=== PATIENT | male | born 1955 | race Two or more races ===

== ENCOUNTER 2023-08-20 08:02 | Observation (INO) | payer MEDICARE, OTHER ==
[2023-08-20] MEDS ORDERED: Ondansetron PF 4 MG/2 ML Vial ONE (10:30)
[2023-08-20] MEDS ORDERED: Lidocaine 1% PF 5 ML VIAL ONE (10:30)
[2023-08-20] MEDS ORDERED: Rocuronium Bromide 10 MG/ML (10ML VIAL) ONE (10:30)
[2023-08-20] MEDS ORDERED: PROPOFOL 20 ML ONE (10:31)
[2023-08-20] MEDS ORDERED: Dexamethasone 4 mg/ml Vial ONE (10:31)
[2023-08-20] MEDS ORDERED: Fentanyl 250 MCG/5 ML VIAL ONE (10:31)
[2023-08-20] MEDS ORDERED: Midazolam HCl 2 mg/2 ml Vial ONE (10:31)
[2023-08-20] MEDS ORDERED: CEFAZOLIN 2 GM VIAL ONE (10:46)
[2023-08-20] MEDS ORDERED: Ondansetron PF 4 MG/2 ML Vial IVP PRN (11:06)
[2023-08-20] MEDS ORDERED: Guaifenesin DM 100-10/5 ML UDCUP PO PRN (11:06)
[2023-08-20] MEDS ORDERED: HYDROcodone/Acetaminophen 5/325 mg Tablet PO PRN ×2 (11:06)
[2023-08-20] MEDS ORDERED: Ondansetron ODT 4 MG TAB PO PRN (11:06)
[2023-08-20] MEDS ORDERED: EPINEPHrine 1 MG/ML AMP ONE (11:43)
[2023-08-20] MEDS ORDERED: Neomycin-Polymyxin 1 ML AMP ONE (12:41)
[2023-08-20 15:08] VITALS: BMI 25.0
[2023-08-20] MEDS: metFORMIN 500 MG TAB PO SCH (18:46)
[2023-08-20] MEDS: Lisinopril 20 MG TAB PO SCH (19:36)
[2023-08-20] MEDS: Atorvastatin Calcium 10 MG TAB PO SCH (20:44)
[2023-08-20] MEDS: Amoxicillin/Potassium Clav 875 MG TAB PO SCH (20:44)
[2023-08-20] MEDS: Zolpidem Tartrate 5 MG TAB PO PRN (21:28)
[2023-08-20] MEDS: Amlodipine 5 MG TAB PO SCH (21:28)
[2023-08-20 22:07] LABS: Anion Gap 15 mmol/L (10-20); BUN (Urea Nitrogen) 17 mg/dL (8.4-25.7); Calc. Creatinine Clearance 79 mL/min (70-130); Calcium 9.4 mg/dL (7.8-10.44); Carbon Dioxide 23 mmol/L (23-31); Chloride 107 mmol/L (98-107); Estimated GFR 81; Glucose 146 mg/dL (80-115); Magnesium 1.8 mg/dL (1.6-2.6); Potassium 3.9 mmol/L (3.5-5.1); Sodium 141 mmol/L (136-145)
[2023-08-20] MEDS: hydrALAZINE 20 MG/ML VIAL SLOW IVP SCH (23:34)
[2023-08-21] MEDS: Magnesium Oxide 400 MG TAB PO SCH (00:44)
[2023-08-21 02:38] VITALS: TEMP 97.9
[2023-08-21] MEDS: hydrALAZINE 20 MG/ML VIAL SLOW IVP PRN (04:08)
[2023-08-21] MEDS: Lisinopril 20 MG TAB PO SCH (07:19)
[2023-08-21] MEDS: Amlodipine 5 MG TAB PO SCH (07:20)
[2023-08-21 07:21] VITALS: BP 158/64
[2023-08-21] MEDS ORDERED: Amlodipine 5 MG TAB PO SCH (09:00)
[2023-08-21] MEDS ORDERED: Lisinopril 20 MG TAB PO SCH ×2 (09:00→21:00)
[2023-08-21] MEDS: Levothyroxine Sodium 25 MCG TAB PO SCH (09:22)
== END 2023-08-21 13:21 | disposition home or self-care (01) ==
LOC: CSHSDC 08:02 → CSHTELE 11:06
PROVIDERS: ADMIT Otolaryngology Otolaryngic Allergy; ATTEND Otolaryngology Otolaryngic Allergy
PROC: 0FB Hepatobiliary System and Pancreas, Excision (ICD-10-PCS; principal; 2023-08-20)
DX: Q89.2 Congenital malformations of other endocrine glands (principal); I65.23 Occlusion and stenosis of bilateral carotid arteries; E11.9 Type 2 diabetes mellitus without complications; E78.5 Hyperlipidemia, unspecified; I16.0 Hypertensive urgency; E03.9 Hypothyroidism, unspecified; Z79.84 Long term (current) use of oral hypoglycemic drugs; Z79.890 Hormone replacement therapy; Z79.899 Other long term (current) drug therapy
CPT/HCPCS: 60280; 80048; 83735; 94760; J0171; J0360 ×2; J1100; J2250; J2405; J2704; J3010; 36415; 88305